=== PATIENT | female | born 1960 | race Caucasian/White ===

== ENCOUNTER 2017-03-26 08:42 | Day surgery (SDC) | payer MEDICARE ==
[2017-03-25 12:26] VITALS: BMI 25.7
[2017-03-26] MEDS ORDERED: LIDOCAINE HCL 1%, 10 MG/ML (20ML VIAL) ONE (09:40)
[2017-03-26] MEDS ORDERED: MIDAZOLAM HCL 2 MG/2 ML SINGLE DOSE VIAL ONE ×2 (10:47)
[2017-03-26] MEDS ORDERED: SUCCINYLCHOLINE CHLORIDE 200 MG/10 ML VIAL ONE (10:48)
[2017-03-26] MEDS ORDERED: PROPOFOL 20 ML ONE ×3 (10:48)
[2017-03-26] MEDS ORDERED: DEXAMETHASONE SOD PHOSPHATE 4 MG/1 ML VIAL ONE (10:52)
[2017-03-26] MEDS ORDERED: CLINDAMYCIN PHOSPHATE 600 MG/4 ML VIAL ONE ×2 (11:06→11:07)
[2017-03-26] MEDS ORDERED: CLINDAMYCIN 900 MG PREMIX BAG IVPB ONE (11:14)
[2017-03-26] MEDS ORDERED: BACITRACIN 50,000 UNITS VIAL NR ONE (11:18)
[2017-03-26] MEDS ORDERED: LIDOCAINE HCL 1%, 10 MG/ML (20ML VIAL) IJ ONE (11:18)
--- NOTE | 2017-03-26 11:48 | OP ---
Operative Note - Note: Operative Date: 03/26/17 Pre-Operative Diagnosis: nonfunctioning interstim battery Operation: exchange of interstim battery Post-Operative Diagnosis: Same as Pre-op Surgeon: Chapincito Tee Anesthesia: Local, MAC Estimated Blood Loss (mls): 1 Operative Report Dictated: Yes
[2017-03-26] MEDS ORDERED: oxyCODONE HCL 5 MG TABLET PO PRN ×2 (11:49→11:55)
[2017-03-26] MEDS ORDERED: ONDANSETRON 4 MG/2 ML VIAL IVPUSH PRN (11:55)
[2017-03-26] MEDS ORDERED: LACTATED RINGERS SOLUTION 1,000 ML IV SCH (12:00)
[2017-03-26] MEDS ORDERED: ELECTROLYTE-148 SOLN 1,000 ML IV SCH (12:00)
[2017-03-26 13:46] VITALS: TEMP 97.8
[2017-03-26 15:02] VITALS: BP 102/68; PULSE 85
--- NOTE | 2017-03-27 08:29 | OP ---
DATE OF OPERATION: 03/26/2017 PREOPERATIVE DIAGNOSIS: Nonfunctioning InterStim battery. POSTOPERATIVE DIAGNOSIS: Nonfunctioning InterStim battery. PROCEDURE: Exchange of InterStim battery and interrogation of InterStim device. SURGEON: Chapincito Tee MD INDICATIONS: Patient is a 56-year-old female status post InterStim placement 3 years ago most recently noticed that the device is no longer functioning. It has been interrogated in the office, and the battery was nonfunctioning. Patient was taken to the OR for replacement of battery and testing of the device. DESCRIPTION OF PROCEDURE: Patient was taken to the OR, placed prone on the operating table. After sedation was achieved, the right buttock area was prepped and draped in standard surgical fashion. An incision was made over the existing battery pack site until the battery was visualized, and the battery was then removed from the battery pocket. Using the screwdriver, the lead was from the battery. The lead with the 4 channels was then wiped clean and dry. Then, the lead was interrogated on all 4 channels and excellent motor and sensory responses were achieved. At this point, then, a new battery was attached to the lead and screwed in place. The battery with the lead was then placed back into the previous pocket, and the pocket was closed in 2 layers using the 3-0 Vicryl for the subcutaneous layer and a 4-0 Monocryl subcuticular layer. This was followed by Dermabond. Dry sterile dressings were then placed. Patient was awoken from anesthesia and transferred to recovery room in stable condition. There were no complications. ESTIMATED BLOOD LOSS: Minimal. Ese [id number] MTDD
--- NOTE | 2017-03-27 09:10 | PATH ---
Surgical Pathology Report Patient Name: KATHERINE CHATTERJEE [facility]. Rec. #: [id number] /Age/Gender: 1960 (Age: 56) / F Account: [id number] Location: [facility] SURGICAL Taken: 03/26/2017 Received: 03/26/2017 Reported: 03/27/2017 Physicians: Chapincito Tee M.D. Specimen(s) Received OLD INTERSTIM BATTERY Clinical History Frequency, female mixed incontinence Final Diagnosis THERAPEUTIC ASSISTANT, REMOVAL: THERAPEUTIC ASSISTANT CONSISTENT WITH INTERSTIM BATTERY (GROSS ONLY). Electronically Signed Gaetano Smith M.D. Gross Description Received fresh labeled "old battery (Interstim)," is a 5.0 x 4.3 x 0.7 cm pineda metallic device, consistent with a battery. The specimen has the following inscription: "[employer] InterStim II SN: [id number]." No soft tissue is present. No sections are submitted, gross only. /03/26/2017 saudi03/26/2017
== END 2017-03-26 15:41 | disposition home or self-care (01) ==
LOC: JASU-SURG 08:42
PROVIDERS: ATTEND Urology
PROC: 0JH70BZ Insertion of Single Array Stimulator Generator into Back Subcutaneous Tissue and Fascia, Open Approach (ICD-10-PCS; 2017-03-26)
PROC: 4B00XVZ Measurement of Central Nervous Stimulator, External Approach (ICD-10-PCS; 2017-03-26)
PROC: 0JPT0MZ Removal of Stimulator Generator from Trunk Subcutaneous Tissue and Fascia, Open Approach (ICD-10-PCS; principal; 2017-03-26 10:30)
DX: N39.46 Mixed incontinence (principal); R35.0 Frequency of micturition
CPT/HCPCS: 64590; C1767; 76000-TC; 88300-TC; 94760

== ENCOUNTER 2021-05-14 10:22 | Emergency (ER) | payer OTHER ==
[2021-05-14 10:32] VITALS: BP 120/76; PULSE 79; TEMP 98.3; BMI 28.7
[2021-05-14] MEDS ORDERED: SODIUM CHLORIDE 0.9% 500 ML INFUS.BAG IV ONE (11:01)
[2021-05-14] MEDS ORDERED: FAMOTIDINE 20 MG/50 ML IVPB 20 MG/50 ML MG IVPB ONE ×2 (11:01→11:22)
[2021-05-14] MEDS ORDERED: ACETAMINOPHEN 500 MG TABLET (FP) PO ONE (11:01)
[2021-05-14] MEDS ORDERED: MAG HYDROX/AL HYDROX/SIMETH 30 ML UNIT-DOSE CUP PO ONE (11:01)
[2021-05-14] MEDS ORDERED: MAG HYDROX/AL HYDROX/SIMETH 30 ML UNIT-DOSE CUP ONE (11:21)
[2021-05-14] MEDS ORDERED: ACETAMINOPHEN 325 MG TABLET (FP) ONE (11:21)
[2021-05-14 13:51] LABS: BASO % 0.4 % (0-2.0); EOS % 1.6 % (0-4.5); HEMATOCRIT 41.8 % (32.4-45.2); LYMPH % 49.3 % (8-40); MCH 32.1 pg (25.7-33.7); MCHC 33.4 g/dl (32.0-36.0); MEAN CELL VOLUME 96.3 fl (80-96); MEAN PLT VOLUME 8.7 fl (7.5-11.1); MONO % 8.8 % (3.8-10.2); NEUT % 39.9 % (42.8-82.8); PLATELET COUNT 255 10^3/uL (134-434); RBC 4.35 M/mm3 (3.60-5.2); RDW 13.4 % (11.6-15.6); WHITE BLOOD COUNT 4.7 K/mm3 (4.0-10.0)
[2021-05-14 14:15] LABS: CHLORIDE 105 mmol/L (98-107); SODIUM 138 mmol/L (136-145)
[2021-05-14 14:18] LABS: ANION GAP 6 MMOL/L (8-16); BLOOD UREA NITROGEN 8.6 mg/dL (7-18); CALCIUM 9.5 mg/dL (8.5-10.1); CO2 27 mmol/L (21-32); LIPASE 72 U/L (73-393)
[2021-05-14 14:21] LABS: SGOT/AST 17 U/L (15-37); SGPT/ALT 25 U/L (13-61)
[2021-05-14 14:23] LABS: BILIRUBIN,TOTAL 0.4 mg/dL (0.2-1)
[2021-05-14 14:24] LABS: ALK PHOS 71 U/L (45-117)
[2021-05-14 14:36] LABS: CREATININE 0.7 mg/dL (0.55-1.3); GLUCOSE,RANDOM 79 mg/dL (74-106)
== END 2021-05-14 15:45 | disposition home or self-care (01) ==
LOC: JER 10:22
PROC: 3E033GC Introduction of Other Therapeutic Substance into Peripheral Vein, Percutaneous Approach (ICD-10-PCS; principal; 2021-05-14)
DX: R10.13 Epigastric pain (principal); R19.7 Diarrhea, unspecified; Z11.52 Encounter for screening for COVID-19
CPT/HCPCS: 36415; 71045-TC-FY; 76705-TC; 80053; 82550; 83690; 84484; 85025; 93005; 93010; 99285-25; C9803; U0003; U0005

== ENCOUNTER 2023-07-16 04:17 | Day surgery (SDC) | payer OTHER ==
[2023-07-13 17:01] VITALS: BMI 32.1
[2023-07-16 11:23] VITALS: RESP 18
[2023-07-16] MEDS ORDERED: VANCOMYCIN 1,000 MG VIAL (RESTRICTED TO ID ONLY) ONE (12:47)
[2023-07-16] MEDS ORDERED: BACITRACIN ZINC 15 GM TUBE TOPICAL OINTMENT ONE (12:48)
[2023-07-16] MEDS ORDERED: GENTAMICIN SO4 80 MG/2 ML VIAL ONE (12:48)
[2023-07-16] MEDS ORDERED: LIDOCAINE HCL 1%, 10 MG/ML (20ML VIAL) ONE (12:48)
[2023-07-16] MEDS ORDERED: MIDAZOLAM HCL 2 MG/2 ML SINGLE DOSE VIAL ONE (13:18)
[2023-07-16] MEDS ORDERED: VANCOMYCIN 1 GM in D5W (PRE-DOCKED) 1,000 MG/250 ML (RESTRICTED TO ID ONLY IVPB ONE (14:06)
[2023-07-16] MEDS ORDERED: LIDOCAINE HCL 1%, 10 MG/ML (50 mL VIAL) INF ONE (14:10)
[2023-07-16] MEDS ORDERED: oxyCODONE HCL 5 MG TABLET PO PRN (15:16)
[2023-07-16] MEDS ORDERED: ONDANSETRON 4 MG/2 ML VIAL IVPUSH PRN (15:24)
[2023-07-16] MEDS ORDERED: DEXTROSE 5%-0.45% SALINE 1,000 ML IV SCH (15:30)
[2023-07-16] MEDS ORDERED: LACTATED RINGERS SOLUTION 1,000 ML IV SCH (15:30)
[2023-07-16 17:04] VITALS: TEMP 98.2
[2023-07-16 17:40] VITALS: BP 126/75; PULSE 78
== END 2023-07-16 15:35 | disposition home or self-care (01) ==
LOC: JASU-SURG 04:17
PROVIDERS: ATTEND Urology
PROC: 0JH70BZ Insertion of Single Array Stimulator Generator into Back Subcutaneous Tissue and Fascia, Open Approach (ICD-10-PCS; 2023-07-16)
PROC: 01PY3MZ Removal of Neurostimulator Lead from Peripheral Nerve, Percutaneous Approach (ICD-10-PCS; 2023-07-16)
PROC: 01HY3MZ Insertion of Neurostimulator Lead into Peripheral Nerve, Percutaneous Approach (ICD-10-PCS; 2023-07-16)
PROC: 0JPT0MZ Removal of Stimulator Generator from Trunk Subcutaneous Tissue and Fascia, Open Approach (ICD-10-PCS; principal; 2023-07-16 13:30)
DX: T83.118A Breakdown (mechanical) of other urinary devices and implants, initial encounter (principal); N32.81 Overactive bladder
CPT/HCPCS: 64590; C1778; L8679; 76000-TC-FY; 94760